=== PATIENT | female | born 1940 | race Asian ===

== ENCOUNTER 2017-03-03 15:11 | Inpatient (IN) | payer MEDICARE, OTHER ==
[2017-03-03] MEDS: ONDANSETRON 4 MG INJ IV (17:56)
[2017-03-03] MEDS: morphine 4 MG/ML VIAL IV (17:57)
[2017-03-03 18:00] LABS: ADD MAN DIFF? NO
[2017-03-03] MEDS ORDERED: ONDANSETRON 4 MG INJ IV (18:00)
[2017-03-03] MEDS ORDERED: ACETAMINOPHEN 325 MG TAB PO (18:00)
[2017-03-03 18:06] LABS: BASOPHIL # 0.1 10^3/ul (0.0-0.1); BASOPHILS % 0.8 % (0.0-2.0); EOSINOPHILS # 0.2 10^3/ul (0.0-0.5); EOSINOPHILS % 3.1 % (0.0-7.0); HEMATOCRIT 41.9 % (37.0-47.0); HEMOGLOBIN 14.2 g/dl (12.0-16.0); LYMPHOCYTES # 1.9 10^3/ul (0.8-2.9); LYMPHOCYTES % 30.6 % (15.0-51.0); MEAN CORPUSCULAR HEMOGLOBIN 30.1 pg (29.0-33.0); MEAN CORPUSCULAR HGB CONC 33.9 g/dl (32.0-37.0); MEAN CORPUSCULAR VOLUME 88.8 fl (82.0-101.0); MONOCYTE # 0.6 10^3/ul (0.3-0.9); MONOCYTES % 9.1 % (0.0-11.0); NEUTROPHIL # 3.4 10^3/ul (1.6-7.5); NEUTROPHILS % 56.2 % (39.0-77.0); PLATELET COUNT 316 10^3/UL (140-415); RED BLOOD COUNT 4.72 10^6/ul (4.20-5.40); RED CELL DISTRIBUTION WIDTH 12.1 % (11.5-14.5)
[2017-03-03 18:06] LABS: WHITE BLOOD COUNT 6.1 10^3/ul (4.8-10.8)
[2017-03-03 18:25] LABS: INR 0.89; PROTIME 12.1 Sec (11.9-14.9); PT RATIO 0.9
[2017-03-03 18:31] LABS: ANION GAP 16 (8-16); BLOOD UREA NITROGEN 14 mg/dl (7-20); CALCIUM 9.2 mg/dl (8.4-10.2); CARBON DIOXIDE 31 mmol/L (21-31); CHLORIDE 98 mmol/L (97-110); CREATININE 0.66 mg/dl (0.44-1.00); GLUCOSE 259 mg/dl (70-220); POTASSIUM 3.1 mmol/L (3.5-5.1); SODIUM 142 mmol/L (135-144)
[2017-03-04] MEDS: DEXTROSE 5%-0.45% NACL 1,000 ML IV ×2 (00:08→14:02)
[2017-03-04] MEDS: POTASSIUM CHLORIDE 50 ML IVPB ×4 (00:15→04:01)
[2017-03-04] MEDS: morphine 2 MG INJ IV (02:58)
[2017-03-04] MEDS: PANTOPRAZOLE 40 MG INJ IV (05:20)
[2017-03-04 05:52] LABS: ADD MAN DIFF? NO
[2017-03-04 05:57] LABS: BASOPHIL # 0.1 10^3/ul (0.0-0.1); BASOPHILS % 0.8 % (0.0-2.0); EOSINOPHILS # 0.3 10^3/ul (0.0-0.5); HEMATOCRIT 35.5 % (37.0-47.0); HEMOGLOBIN 12.2 g/dl (12.0-16.0); LYMPHOCYTES # 1.8 10^3/ul (0.8-2.9); LYMPHOCYTES % 28.3 % (15.0-51.0); MEAN CORPUSCULAR HEMOGLOBIN 30.5 pg (29.0-33.0); MEAN CORPUSCULAR HGB CONC 34.4 g/dl (32.0-37.0); MEAN CORPUSCULAR VOLUME 88.8 fl (82.0-101.0); MEAN PLATELET VOLUME 10.1 fl (7.4-10.4); MONOCYTE # 0.6 10^3/ul (0.3-0.9); MONOCYTES % 9.3 % (0.0-11.0); NEUTROPHIL # 3.7 10^3/ul (1.6-7.5); NEUTROPHILS % 57.3 % (39.0-77.0); PLATELET COUNT 286 10^3/UL (140-415); RED CELL DISTRIBUTION WIDTH 12.3 % (11.5-14.5)
[2017-03-04 05:57] LABS: WHITE BLOOD COUNT 6.4 10^3/ul (4.8-10.8)
[2017-03-04 06:18] LABS: ALANINE AMINOTRANSFERASE 37 IU/L (13-69); ALBUMIN 3.6 g/dl (3.3-4.9); ALKALINE PHOSPHATASE 87 IU/L (42-121); ANION GAP 9 (8-16); ASPARTATE AMINO TRANSFERASE 35 IU/L (15-46); BILIRUBIN,INDIRECT 0.2 mg/dl (0-1.1); BILIRUBIN,TOTAL 0.2 mg/dl (0.2-1.3); BLOOD UREA NITROGEN 14 mg/dl (7-20); CARBON DIOXIDE 32 mmol/L (21-31); CHLORIDE 103 mmol/L (97-110); CREATININE 0.73 mg/dl (0.44-1.00); GLUCOSE 122 mg/dl (70-220); POTASSIUM 4.3 mmol/L (3.5-5.1); SODIUM 140 mmol/L (135-144); TOTAL PROTEIN 6.6 g/dl (6.1-8.1)
[2017-03-04] MEDS: FAMOTIDINE 20 MG TAB PO ×2 (09:32→20:48)
[2017-03-04] MEDS: ALLOPURINOL 100 MG TAB PO (09:32)
[2017-03-04] MEDS: AMLODIPINE 10 MG TAB PO (09:32)
[2017-03-04] MEDS: ATORVASTATIN 10 MG TAB PO (20:48)
[2017-03-05] MEDS: morphine 2 MG INJ IV ×3 (02:03→16:05)
[2017-03-05] MEDS: DEXTROSE 5%-0.45% NACL 1,000 ML IV ×2 (03:46→18:24)
[2017-03-05 05:22] LABS: ADD MAN DIFF? NO
[2017-03-05 05:27] LABS: BASOPHIL # 0.1 10^3/ul (0.0-0.1); BASOPHILS % 0.9 % (0.0-2.0); EOSINOPHILS # 0.3 10^3/ul (0.0-0.5); EOSINOPHILS % 4.9 % (0.0-7.0); HEMATOCRIT 36.5 % (37.0-47.0); HEMOGLOBIN 12.5 g/dl (12.0-16.0); LYMPHOCYTES # 1.8 10^3/ul (0.8-2.9); LYMPHOCYTES % 27.5 % (15.0-51.0); MEAN CORPUSCULAR HEMOGLOBIN 30.2 pg (29.0-33.0); MEAN CORPUSCULAR HGB CONC 34.2 g/dl (32.0-37.0); MEAN CORPUSCULAR VOLUME 88.2 fl (82.0-101.0); MONOCYTE # 0.7 10^3/ul (0.3-0.9); MONOCYTES % 10.6 % (0.0-11.0); NEUTROPHIL # 3.7 10^3/ul (1.6-7.5); NEUTROPHILS % 55.8 % (39.0-77.0); PLATELET COUNT 281 10^3/UL (140-415); RED BLOOD COUNT 4.14 10^6/ul (4.20-5.40); RED CELL DISTRIBUTION WIDTH 12.1 % (11.5-14.5)
[2017-03-05 05:27] LABS: WHITE BLOOD COUNT 6.6 10^3/ul (4.8-10.8)
[2017-03-05 05:53] LABS: INR 0.99; PROTIME 13.2 Sec (11.9-14.9)
[2017-03-05] MEDS: PANTOPRAZOLE 40 MG INJ IV (05:59)
[2017-03-05 06:19] LABS: ANION GAP 12 (8-16); BLOOD UREA NITROGEN 13 mg/dl (7-20); CALCIUM 8.9 mg/dl (8.4-10.2); CARBON DIOXIDE 30 mmol/L (21-31); CHLORIDE 102 mmol/L (97-110); GLUCOSE 109 mg/dl (70-220); POTASSIUM 3.9 mmol/L (3.5-5.1); SODIUM 140 mmol/L (135-144)
[2017-03-05] MEDS: AMLODIPINE 10 MG TAB PO (08:06)
[2017-03-05] MEDS: FAMOTIDINE 20 MG TAB PO ×2 (08:06→21:00)
[2017-03-05] MEDS: ALLOPURINOL 100 MG TAB PO (08:06)
[2017-03-05] MEDS: POLYMYXIN/BACITRACIN 1L IRRIG (18:49)
[2017-03-05] MEDS ORDERED: morphine SULFATE/PF (10 MG/10 ML) INJ (18:49)
[2017-03-05] MEDS ORDERED: MIDAZOLAM 1 MG/ML 2 ML INJ (18:49)
[2017-03-05] MEDS ORDERED: FENTAnyl 50 MCG/ML VIAL (18:49)
[2017-03-05] MEDS ORDERED: CEFAZOLIN 1 GM INJ (20:05)
[2017-03-05] MEDS ORDERED: ONDANSETRON 4 MG INJ (20:05)
[2017-03-05] MEDS ORDERED: ETOMIDATE 20 MG INJ (20:05)
[2017-03-05] MEDS ORDERED: ROCURONIUM 50 MG INJ (20:05)
[2017-03-05] MEDS ORDERED: LIDOCAINE 100 MG SYRINGE (20:05)
[2017-03-05] MEDS ORDERED: NEOSTIGMINE 3 MG/3 ML SYRINGE (20:06)
[2017-03-05] MEDS ORDERED: GLYCOPYRROLATE 0.4 MG INJ (20:06)
[2017-03-05] MEDS ORDERED: HYDROmorphONE 1 MG/ML SYG IV (20:30)
[2017-03-05] MEDS ORDERED: HYDROCODONE/APAP (5/325) TAB PO (20:30)
[2017-03-05] MEDS ORDERED: NACL 0.9% 3 ML SYG IV (20:30)
[2017-03-05] MEDS: CEFAZOLIN 1 GM/50 ML (PMX) 50 ML IVPB (20:30)
[2017-03-05] MEDS: hydrALAzine 20 MG INJ IV (20:59)
[2017-03-05] MEDS ORDERED: FENTAnyl 50 MCG/ML VIAL IV (21:00)
[2017-03-05] MEDS ORDERED: MEPERIDINE 25 MG INJ IV (21:00)
[2017-03-05] MEDS ORDERED: NALOXONE (0.4 MG/ML) INJ IV (21:00)
[2017-03-05] MEDS ORDERED: HYDROmorphONE (0.2 MG/ML) 10ML SYG IV ×2 (21:00)
[2017-03-05] MEDS ORDERED: DIPHENHYDRAMINE 50 MG INJ IV (21:00)
[2017-03-05] MEDS: ATORVASTATIN 10 MG TAB PO (21:00)
[2017-03-05] MEDS ORDERED: LABETALOL HCL 20MG INJ IV (21:00)
[2017-03-05] MEDS ORDERED: ONDANSETRON 4 MG INJ IV (21:00)
[2017-03-05] MEDS ORDERED: METOCLOPRAMIDE 10 MG INJ IV (21:00)
[2017-03-05] MEDS: D5W-0.45 NACL + KCL 10 MEQ 1,000 ML IV (22:23)
[2017-03-06] MEDS: CEFAZOLIN 1 GM/50 ML (PMX) 50 ML IVPB ×4 (03:32→21:26)
[2017-03-06] MEDS: D5W-0.45 NACL + KCL 10 MEQ 1,000 ML IV ×3 (04:09→17:20)
[2017-03-06] MEDS: PANTOPRAZOLE 40 MG INJ IV (06:56)
[2017-03-06] MEDS ORDERED: INFLUENZA VIRUS VACCINE 0.5 ML (DISPENSING) IM* (09:00)
[2017-03-06] MEDS: FAMOTIDINE 20 MG TAB PO ×2 (09:29→21:26)
[2017-03-06] MEDS: AMLODIPINE 10 MG TAB PO (09:29)
[2017-03-06] MEDS: ALLOPURINOL 100 MG TAB PO (09:29)
[2017-03-06] MEDS: ENOXAPARIN 40 MG/0.4 ML SYG SC (09:31)
[2017-03-06] MEDS: ONDANSETRON 4 MG INJ IV (10:49)
[2017-03-06] MEDS: ATORVASTATIN 10 MG TAB PO (21:26)
[2017-03-07] MEDS: ACETAMINOPHEN 325 MG TAB PO ×3 (01:18→21:29)
[2017-03-07 05:26] LABS: ADD MAN DIFF? NO
[2017-03-07 05:29] LABS: BASOPHIL # 0.1 10^3/ul (0.0-0.1); BASOPHILS % 0.6 % (0.0-2.0); EOSINOPHILS # 0.3 10^3/ul (0.0-0.5); EOSINOPHILS % 3.6 % (0.0-7.0); HEMATOCRIT 30.7 % (37.0-47.0); HEMOGLOBIN 10.8 g/dl (12.0-16.0); LYMPHOCYTES # 1.2 10^3/ul (0.8-2.9); LYMPHOCYTES % 15.7 % (15.0-51.0); MEAN CORPUSCULAR HEMOGLOBIN 31.1 pg (29.0-33.0); MEAN CORPUSCULAR HGB CONC 35.2 g/dl (32.0-37.0); MEAN CORPUSCULAR VOLUME 88.5 fl (82.0-101.0); MEAN PLATELET VOLUME 10.3 fl (7.4-10.4); MONOCYTE # 0.9 10^3/ul (0.3-0.9); MONOCYTES % 11.8 % (0.0-11.0); NEUTROPHIL # 5.3 10^3/ul (1.6-7.5); PLATELET COUNT 220 10^3/UL (140-415); RED BLOOD COUNT 3.47 10^6/ul (4.20-5.40); RED CELL DISTRIBUTION WIDTH 12.4 % (11.5-14.5)
[2017-03-07 05:29] LABS: WHITE BLOOD COUNT 7.8 10^3/ul (4.8-10.8)
[2017-03-07 05:44] LABS: ALANINE AMINOTRANSFERASE 31 IU/L (13-69); ALBUMIN/GLOBULIN RATIO 1.11; ALKALINE PHOSPHATASE 87 IU/L (42-121); ANION GAP 10 (8-16); ASPARTATE AMINO TRANSFERASE 29 IU/L (15-46); BILIRUBIN,INDIRECT 0.6 mg/dl (0-1.1); BILIRUBIN,TOTAL 0.6 mg/dl (0.2-1.3); BLOOD UREA NITROGEN 11 mg/dl (7-20); CALCIUM 8.3 mg/dl (8.4-10.2); CARBON DIOXIDE 30 mmol/L (21-31); CHLORIDE 102 mmol/L (97-110); CREATININE 0.68 mg/dl (0.44-1.00); GLUCOSE 115 mg/dl (70-220); POTASSIUM 3.4 mmol/L (3.5-5.1); SODIUM 139 mmol/L (135-144); TOTAL PROTEIN 5.7 g/dl (6.1-8.1)
[2017-03-07] MEDS: PANTOPRAZOLE 40 MG INJ IV (05:51)
[2017-03-07] MEDS: ALLOPURINOL 100 MG TAB PO (08:47)
[2017-03-07] MEDS: AMLODIPINE 10 MG TAB PO (08:47)
[2017-03-07] MEDS: FAMOTIDINE 20 MG TAB PO ×2 (08:47→20:31)
[2017-03-07] MEDS: ENOXAPARIN 40 MG/0.4 ML SYG SC (08:56)
[2017-03-07] MEDS ORDERED: ENOXAPARIN 40 MG/0.4 ML SYG SC (09:00)
[2017-03-07] MEDS: D5W-0.45 NACL + KCL 10 MEQ 1,000 ML IV (17:04)
[2017-03-07] MEDS: POTASSIUM CHLORIDE 20 MEQ POWDER FOR ORAL SOLN PO (17:13)
[2017-03-07] MEDS: ATORVASTATIN 10 MG TAB PO (20:31)
[2017-03-08 05:39] LABS: ANION GAP 8 (8-16); BLOOD UREA NITROGEN 11 mg/dl (7-20); CALCIUM 8.8 mg/dl (8.4-10.2); CARBON DIOXIDE 31 mmol/L (21-31); CHLORIDE 104 mmol/L (97-110); CREATININE 0.61 mg/dl (0.44-1.00); GLUCOSE 115 mg/dl (70-220); POTASSIUM 3.4 mmol/L (3.5-5.1); SODIUM 140 mmol/L (135-144)
[2017-03-08] MEDS: PANTOPRAZOLE 40 MG INJ IV (05:47)
[2017-03-08] MEDS: ACETAMINOPHEN 325 MG TAB PO ×2 (05:52→16:14)
[2017-03-08] MEDS: AMLODIPINE 10 MG TAB PO (08:20)
[2017-03-08] MEDS: FAMOTIDINE 20 MG TAB PO (08:20)
[2017-03-08] MEDS: ALLOPURINOL 100 MG TAB PO (08:21)
[2017-03-08] MEDS: ENOXAPARIN 40 MG/0.4 ML SYG SC (08:22)
[2017-03-08] MEDS ORDERED: POTASSIUM CHLORIDE (SR) 20 MEQ TAB PO ×2 (11:00→11:04)
[2017-03-08] MEDS: POTASSIUM CHLORIDE (SR) 20 MEQ TAB PO (11:18)
[2017-03-08] MEDS: D5W-0.45 NACL + KCL 10 MEQ 1,000 ML IV (11:19)
== END 2017-03-08 18:48 | disposition short-term general hospital (02) | DRG 482 ==
LOC: E/R 15:11 → MS1 22:44
PROC: 0QS606Z Reposition Right Upper Femur with Intramedullary Internal Fixation Device, Open Approach (ICD-10-PCS; principal; 2017-03-05 17:00)
DX: S72.141A Displaced intertrochanteric fracture of right femur, initial encounter for closed fracture (principal); I10 Essential (primary) hypertension; E78.5 Hyperlipidemia, unspecified; E87.6 Hypokalemia; M10.9 Gout, unspecified; W01.0XXA Fall on same level from slipping, tripping and stumbling without subsequent striking against object, initial encounter
CPT/HCPCS: 36415; 71045; 73500; 73530; 80048; 80053; 83036; 85025; 85610; 85730; 87086; 90686; 93005; 96374; 96375; 97110; 97116; 97162; 97530; 99285-25

== ENCOUNTER 2017-03-08 19:00 | Inpatient (IN) | payer MEDICARE, OTHER ==
[2017-03-08] MEDS ORDERED: LACTULOSE 30ML CUP PO (21:30)
[2017-03-08] MEDS ORDERED: ONDANSETRON 4 MG INJ IV (21:30)
[2017-03-08] MEDS ORDERED: BISACODYL 10 MG SUPP PR (21:30)
[2017-03-08] MEDS ORDERED: MAGNESIUM HYDROXIDE 30ML CUP PO (21:30)
[2017-03-08] MEDS: ACETAMINOPHEN 325 MG TAB PO (22:05)
[2017-03-08 23:22] LABS: ADD UMIC YES; UR ASCORBIC ACID NEGATIVE (NEGATIVE); UR BILIRUBIN (Dip) NEGATIVE (NEGATIVE); UR BLOOD (Dip) 1+ mg/dL (NEGATIVE); UR CLARITY CLEAR (CLEAR); UR COLOR YELLOW (YELLOW); UR GLUCOSE (Dip) NEGATIVE (NEGATIVE); UR KETONES (Dip) NEGATIVE (NEGATIVE); UR LEUKOCYTE ESTERASE (Dip) NEGATIVE Leu/ul (NEGATIVE); UR NITRITE (Dip) NEGATIVE (NEGATIVE); UR RBC 2 /HPF (0-5); UR TOTAL PROTEIN (Dip) 1+ mg/dl (NEGATIVE); UR UROBILINOGEN (Dip) 2+ mg/dL (NEGATIVE); UR WBC 2 /HPF (0-5)
[2017-03-09] MEDS: PANTOPRAZOLE 40 MG INJ IV ×2 (05:54→09:21)
[2017-03-09 07:16] LABS: ADD MAN DIFF? NO
[2017-03-09 07:20] LABS: BASOPHILS % 0.6 % (0.0-2.0); EOSINOPHILS # 0.4 10^3/ul (0.0-0.5); EOSINOPHILS % 5.9 % (0.0-7.0); HEMATOCRIT 28.4 % (37.0-47.0); LYMPHOCYTES % 14.3 % (15.0-51.0); MEAN CORPUSCULAR HEMOGLOBIN 31.3 pg (29.0-33.0); MEAN CORPUSCULAR HGB CONC 35.2 g/dl (32.0-37.0); MEAN PLATELET VOLUME 10.1 fl (7.4-10.4); MONOCYTE # 0.8 10^3/ul (0.3-0.9); MONOCYTES % 10.8 % (0.0-11.0); NEUTROPHIL # 4.7 10^3/ul (1.6-7.5); PLATELET COUNT 268 10^3/UL (140-415); RED BLOOD COUNT 3.19 10^6/ul (4.20-5.40); RED CELL DISTRIBUTION WIDTH 12.5 % (11.5-14.5)
[2017-03-09 07:20] LABS: WHITE BLOOD COUNT 6.9 10^3/ul (4.8-10.8)
[2017-03-09 07:41] LABS: ALANINE AMINOTRANSFERASE 33 IU/L (13-69); ALBUMIN 3.4 g/dl (3.3-4.9); ALBUMIN/GLOBULIN RATIO 1.21; ALKALINE PHOSPHATASE 93 IU/L (42-121); ANION GAP 12 (8-16); ASPARTATE AMINO TRANSFERASE 33 IU/L (15-46); BILIRUBIN,INDIRECT 0.4 mg/dl (0-1.1); BILIRUBIN,TOTAL 0.4 mg/dl (0.2-1.3); BLOOD UREA NITROGEN 11 mg/dl (7-20); CALCIUM 8.6 mg/dl (8.4-10.2); CARBON DIOXIDE 29 mmol/L (21-31); CHLORIDE 104 mmol/L (97-110); CREATININE 0.58 mg/dl (0.44-1.00); GLUCOSE 100 mg/dl (70-220); POTASSIUM 3.7 mmol/L (3.5-5.1); SODIUM 141 mmol/L (135-144); TOTAL PROTEIN 6.2 g/dl (6.1-8.1)
[2017-03-09] MEDS: HYDROmorphONE 1 MG/ML SYG IV ×3 (08:27→16:19)
[2017-03-09] MEDS: POTASSIUM CHLORIDE (SR) 20 MEQ TAB PO (09:18)
[2017-03-09] MEDS: FAMOTIDINE 20 MG TAB PO ×2 (09:19→20:44)
[2017-03-09] MEDS: DOCUSATE SODIUM 100 MG CAP PO ×2 (09:19→20:44)
[2017-03-09] MEDS: ALLOPURINOL 100 MG TAB PO (09:19)
[2017-03-09] MEDS: ENOXAPARIN 40 MG/0.4 ML SYG SC (09:20)
[2017-03-09] MEDS: AMLODIPINE 10 MG TAB PO (09:21)
[2017-03-09] MEDS ORDERED: HYDROmorphONE 2 MG TAB PO (16:00)
[2017-03-09] MEDS: ACETAMINOPHEN 325 MG TAB PO (20:44)
[2017-03-09] MEDS: ATORVASTATIN 10 MG TAB PO (20:44)
[2017-03-09] MEDS: SENNA TAB PO (20:44)
[2017-03-10] MEDS: PANTOPRAZOLE (EC) 40 MG TAB PO (06:42)
[2017-03-10 07:57] LABS: ADD MAN DIFF? NO
[2017-03-10 08:08] LABS: WHITE BLOOD COUNT 8.2 10^3/ul (4.8-10.8)
[2017-03-10 08:08] LABS: BASOPHILS % 0.5 % (0.0-2.0); EOSINOPHILS # 0.6 10^3/ul (0.0-0.5); EOSINOPHILS % 7.3 % (0.0-7.0); HEMATOCRIT 27.5 % (37.0-47.0); HEMOGLOBIN 9.4 g/dl (12.0-16.0); LYMPHOCYTES # 1.1 10^3/ul (0.8-2.9); LYMPHOCYTES % 13.9 % (15.0-51.0); MEAN CORPUSCULAR HEMOGLOBIN 30.5 pg (29.0-33.0); MEAN CORPUSCULAR HGB CONC 34.2 g/dl (32.0-37.0); MEAN CORPUSCULAR VOLUME 89.3 fl (82.0-101.0); MEAN PLATELET VOLUME 10.4 fl (7.4-10.4); MONOCYTES % 12.4 % (0.0-11.0); NEUTROPHIL # 5.4 10^3/ul (1.6-7.5); NEUTROPHILS % 65.7 % (39.0-77.0); PLATELET COUNT 285 10^3/UL (140-415); RED BLOOD COUNT 3.08 10^6/ul (4.20-5.40); RED CELL DISTRIBUTION WIDTH 12.8 % (11.5-14.5)
[2017-03-10] MEDS: ALLOPURINOL 100 MG TAB PO (08:38)
[2017-03-10] MEDS: AMLODIPINE 10 MG TAB PO (08:38)
[2017-03-10] MEDS: DOCUSATE SODIUM 100 MG CAP PO ×2 (08:38→20:31)
[2017-03-10] MEDS: FAMOTIDINE 20 MG TAB PO ×2 (08:38→20:31)
[2017-03-10] MEDS: ENOXAPARIN 40 MG/0.4 ML SYG SC (08:39)
[2017-03-10] MEDS: ACETAMINOPHEN 325 MG TAB PO ×2 (12:24→20:45)
[2017-03-10] MEDS: ATORVASTATIN 10 MG TAB PO (20:31)
[2017-03-10] MEDS: SENNA TAB PO (20:31)
[2017-03-11] MEDS: ACETAMINOPHEN 325 MG TAB PO ×2 (05:17→21:25)
[2017-03-11] MEDS: PANTOPRAZOLE (EC) 40 MG TAB PO (05:17)
[2017-03-11] MEDS: AMLODIPINE 10 MG TAB PO (08:21)
[2017-03-11] MEDS: ALLOPURINOL 100 MG TAB PO (08:21)
[2017-03-11] MEDS: HYDROCODONE/APAP (5/325) TAB PO (08:21)
[2017-03-11] MEDS: FAMOTIDINE 20 MG TAB PO ×2 (08:21→20:25)
[2017-03-11] MEDS: ENOXAPARIN 40 MG/0.4 ML SYG SC (08:22)
[2017-03-11] MEDS: DOCUSATE SODIUM 100 MG CAP PO ×2 (08:25→20:25)
[2017-03-11] MEDS: DIPHENHYDRAMINE 25 MG CAP PO ×2 (14:56→21:29)
[2017-03-11] MEDS: ATORVASTATIN 10 MG TAB PO (20:25)
[2017-03-11] MEDS: SENNA TAB PO (20:25)
[2017-03-12] MEDS: PANTOPRAZOLE (EC) 40 MG TAB PO (05:39)
[2017-03-12] MEDS: FAMOTIDINE 20 MG TAB PO ×2 (08:04→20:07)
[2017-03-12] MEDS: ALLOPURINOL 100 MG TAB PO (08:04)
[2017-03-12] MEDS: AMLODIPINE 10 MG TAB PO (08:04)
[2017-03-12] MEDS: ENOXAPARIN 40 MG/0.4 ML SYG SC (08:05)
[2017-03-12] MEDS: DOCUSATE SODIUM 100 MG CAP PO ×2 (08:08→20:08)
[2017-03-12] MEDS: ACETAMINOPHEN 325 MG TAB PO ×2 (14:15→20:11)
[2017-03-12] MEDS: ATORVASTATIN 10 MG TAB PO (20:07)
[2017-03-12] MEDS: SENNA TAB PO (20:08)
[2017-03-12] MEDS: DIPHENHYDRAMINE 25 MG CAP PO (20:11)
[2017-03-13] MEDS: PANTOPRAZOLE (EC) 40 MG TAB PO (06:34)
[2017-03-13] MEDS: DOCUSATE SODIUM 100 MG CAP PO ×3 (11:34→20:41)
[2017-03-13] MEDS: ENOXAPARIN 40 MG/0.4 ML SYG SC (11:34)
[2017-03-13] MEDS: ALLOPURINOL 100 MG TAB PO (11:34)
[2017-03-13] MEDS: FAMOTIDINE 20 MG TAB PO ×2 (11:34→20:41)
[2017-03-13] MEDS: AMLODIPINE 10 MG TAB PO (11:46)
[2017-03-13] MEDS: ATORVASTATIN 10 MG TAB PO (20:41)
[2017-03-13] MEDS: ACETAMINOPHEN 325 MG TAB PO (20:41)
[2017-03-13] MEDS: SENNA TAB PO (20:41)
[2017-03-13] MEDS: GUAIFENESIN/DM 5ML CUP PO (21:48)
[2017-03-14] MEDS: PANTOPRAZOLE (EC) 40 MG TAB PO (06:16)
[2017-03-14] MEDS: GUAIFENESIN/DM 5ML CUP PO ×2 (06:19→19:57)
[2017-03-14] MEDS: ENOXAPARIN 40 MG/0.4 ML SYG SC (08:41)
[2017-03-14] MEDS: FAMOTIDINE 20 MG TAB PO ×2 (08:41→19:58)
[2017-03-14] MEDS: ALLOPURINOL 100 MG TAB PO (08:41)
[2017-03-14] MEDS: AMLODIPINE 10 MG TAB PO (08:42)
[2017-03-14] MEDS: DOCUSATE SODIUM 100 MG CAP PO ×2 (08:46→20:02)
[2017-03-14] MEDS: ACETAMINOPHEN 325 MG TAB PO (13:14)
[2017-03-14] MEDS: ATORVASTATIN 10 MG TAB PO (19:58)
[2017-03-14] MEDS: SENNA TAB PO (20:02)
[2017-03-14] MEDS: HYDROCODONE/APAP (5/325) TAB PO (21:26)
[2017-03-15] MEDS: PANTOPRAZOLE (EC) 40 MG TAB PO (05:37)
[2017-03-15] MEDS: FAMOTIDINE 20 MG TAB PO ×2 (09:15→20:22)
[2017-03-15] MEDS: ALLOPURINOL 100 MG TAB PO (09:15)
[2017-03-15] MEDS: AMLODIPINE 10 MG TAB PO (09:15)
[2017-03-15] MEDS: GUAIFENESIN/DM 5ML CUP PO (09:15)
[2017-03-15] MEDS: DOCUSATE SODIUM 100 MG CAP PO ×2 (09:15→20:23)
[2017-03-15] MEDS: HYDROmorphONE 2 MG TAB PO (09:15)
[2017-03-15] MEDS: ENOXAPARIN 40 MG/0.4 ML SYG SC (09:16)
[2017-03-15] MEDS: ATORVASTATIN 10 MG TAB PO (20:22)
[2017-03-15] MEDS: SENNA TAB PO (20:23)
[2017-03-16] MEDS: PANTOPRAZOLE (EC) 40 MG TAB PO (06:01)
[2017-03-16] MEDS: GUAIFENESIN/DM 5ML CUP PO (06:04)
[2017-03-16 07:19] LABS: ADD MAN DIFF? NO
[2017-03-16 07:25] LABS: BASOPHIL # 0.1 10^3/ul (0.0-0.1); BASOPHILS % 0.6 % (0.0-2.0); EOSINOPHILS # 0.4 10^3/ul (0.0-0.5); EOSINOPHILS % 5.4 % (0.0-7.0); HEMATOCRIT 28.2 % (37.0-47.0); HEMOGLOBIN 9.6 g/dl (12.0-16.0); LYMPHOCYTES # 1.6 10^3/ul (0.8-2.9); LYMPHOCYTES % 21.2 % (15.0-51.0); MEAN CORPUSCULAR HEMOGLOBIN 30.8 pg (29.0-33.0); MEAN CORPUSCULAR VOLUME 90.4 fl (82.0-101.0); MEAN PLATELET VOLUME 9.7 fl (7.4-10.4); MONOCYTE # 0.8 10^3/ul (0.3-0.9); MONOCYTES % 9.8 % (0.0-11.0); NEUTROPHIL # 4.8 10^3/ul (1.6-7.5); NEUTROPHILS % 62.4 % (39.0-77.0); PLATELET COUNT 386 10^3/UL (140-415); RED BLOOD COUNT 3.12 10^6/ul (4.20-5.40); RED CELL DISTRIBUTION WIDTH 13.3 % (11.5-14.5)
[2017-03-16 07:25] LABS: WHITE BLOOD COUNT 7.8 10^3/ul (4.8-10.8)
[2017-03-16 07:40] LABS: ALANINE AMINOTRANSFERASE 45 IU/L (13-69); ALBUMIN 3.8 g/dl (3.3-4.9); ALBUMIN/GLOBULIN RATIO 1.15; ALKALINE PHOSPHATASE 106 IU/L (42-121); ANION GAP 12 (8-16); ASPARTATE AMINO TRANSFERASE 35 IU/L (15-46); BILIRUBIN,INDIRECT 0.5 mg/dl (0-1.1); BILIRUBIN,TOTAL 0.5 mg/dl (0.2-1.3); BLOOD UREA NITROGEN 10 mg/dl (7-20); CALCIUM 9.4 mg/dl (8.4-10.2); CARBON DIOXIDE 34 mmol/L (21-31); CHLORIDE 98 mmol/L (97-110); GLUCOSE 110 mg/dl (70-220); POTASSIUM 3.9 mmol/L (3.5-5.1); SODIUM 140 mmol/L (135-144); TOTAL PROTEIN 7.1 g/dl (6.1-8.1)
[2017-03-16] MEDS: DOCUSATE SODIUM 100 MG CAP PO ×2 (09:00→21:00)
[2017-03-16] MEDS: ENOXAPARIN 40 MG/0.4 ML SYG SC (10:37)
[2017-03-16] MEDS: FAMOTIDINE 20 MG TAB PO ×2 (10:38→21:31)
[2017-03-16] MEDS: ALLOPURINOL 100 MG TAB PO (10:39)
[2017-03-16] MEDS: AMLODIPINE 10 MG TAB PO (10:39)
[2017-03-16] MEDS: ACETAMINOPHEN 325 MG TAB PO (16:30)
[2017-03-16] MEDS: SENNA TAB PO (21:00)
[2017-03-16] MEDS: ATORVASTATIN 10 MG TAB PO (21:31)
[2017-03-17] MEDS: PANTOPRAZOLE (EC) 40 MG TAB PO (06:24)
[2017-03-17] MEDS: DOCUSATE SODIUM 100 MG CAP PO (09:00)
[2017-03-17] MEDS: ALLOPURINOL 100 MG TAB PO (09:13)
[2017-03-17] MEDS: AMLODIPINE 10 MG TAB PO (09:13)
[2017-03-17] MEDS: FAMOTIDINE 20 MG TAB PO (09:13)
[2017-03-17] MEDS: GUAIFENESIN/DM 5ML CUP PO (09:14)
[2017-03-17] MEDS: ENOXAPARIN 40 MG/0.4 ML SYG SC (09:14)
== END 2017-03-17 13:00 | disposition home health service (06) | DRG 561 ==
LOC: VRC 19:00
DX: S72.141D Displaced intertrochanteric fracture of right femur, subsequent encounter for closed fracture with routine healing (principal); I10 Essential (primary) hypertension; R52 Pain, unspecified; E78.5 Hyperlipidemia, unspecified; E87.6 Hypokalemia; Z74.09 Other reduced mobility; L50.9 Urticaria, unspecified; M10.9 Gout, unspecified
CPT/HCPCS: 80053; 81001; 85025; 87081; 87086; 97110; 97116; 97150; 97163; 97167; 97530; 97535